=== PATIENT | female | born 1955 | race Caucasian/White ===

== ENCOUNTER → 2020-08-04 | Outpatient (CLI) | payer MEDICARE, OTHER ==
[~2020-08-04] MED LIST: ALBUTEROL2.5 MG/3 M INH; AMLODIPINE BESY10 MG PO; ANORO ELLIPTA1 EACH INH; ARAVA20 MG PO; ASPIRIN EC81 MG PO; CHANTIX1 MG PO; CITALOPRAM HBR10 MG PO; CLOPIDOGREL75 MG PO; CRESTOR 10 MG T10 MG PO; CRESTOR10 MG PO; ECOTRIN81 MG PO; GABAPENTIN600 MG PO; ISOSORBIDE MONO30 MG PO; KEFLEX CAP 500500 MG PO; LASIX40 MG PO; LEVOTHYROXINE75 MCG PO; LOPRESSOR 50 MG50 MG PO; NEURONTIN600 MG PO; NITROSTAT0.4 MG SL; NORVASC10 MG PO; NOVOLOG 10100 UNITS/ INJ; NOVOLOG100 UNIT/1 SC; OMEPRAZOLE20 M1 PO; OMEPRAZOLE20 MG PO; OXYCODONE HCL15 MG PO; OXYCONTIN30 MG PO; PERCOCET 5-3251 EACH PO; PLAVIX 75 MG TA75 MG PO; PROTONIX40 MG PO; QUINAPRIL-HCTZ1 EAC2 PO; SOMA350 MG PO; SYNTHROID75 MCG PO; TOPROL XL50 MG PO; TRUXIMA10 MG/1 ML IV; VENTOLIN HFA 66.7 GM INH; VITAMIN D PO; VITAMIN D2000 UNI1 PO
== END ==
LOC: KOH-I 09:00
DX: Z12.2 Encounter for screening for malignant neoplasm of respiratory organs (principal); F17.210 Nicotine dependence, cigarettes, uncomplicated; R91.1 Solitary pulmonary nodule
CPT/HCPCS: G0297

== ENCOUNTER → 2020-11-30 | Outpatient (CLI) | payer MEDICARE, OTHER | LOC: ECHO 11:00 → NM 13:00 | DX: I25.10 Atherosclerotic heart disease of native coronary artery without angina pectoris (principal); I10 Essential (primary) hypertension; Z98.61 Coronary angioplasty status | CPT/HCPCS: ECHO; 78452; 93017; 93306; A9502; J2785 ==

== ENCOUNTER → 2020-12-23 | Outpatient (CLI) | payer MEDICARE, OTHER ==
[2020-12-23 15:43] LABS: HEMOGLOBIN 12.1 gm/dl (12.3-15.3); RED BLOOD COUNT 4.38 M/UL (4.00-5.10); WHITE BLOOD COUNT 14.6 K/UL (4.5-11.0)
[2020-12-23 16:20] LABS: BUN/CREATININE RATIO 23 (0-10)
== END ==
LOC: LAB 15:04
PROVIDERS: Internal Medicine Interventional Cardiology
DX: I25.10 Atherosclerotic heart disease of native coronary artery without angina pectoris (principal); R07.9 Chest pain, unspecified; E78.00 Pure hypercholesterolemia, unspecified; R00.2 Palpitations; I10 Essential (primary) hypertension; R06.02 Shortness of breath
CPT/HCPCS: 80048; 85025; 85610; 85730; 93005

== ENCOUNTER 2021-01-10 12:05 | Outpatient (CLI) | payer MEDICARE, OTHER ==
[~2021-01-10] VITALS: Ht 165.1 cm; Wt 85.3 kg
[~2021-01-10 12:05] MED LIST changes: -ALBUTEROL2.5 MG/3 M INH; -AMLODIPINE BESY10 MG PO; -ANORO ELLIPTA1 EACH INH; -CITALOPRAM HBR10 MG PO; -CLOPIDOGREL75 MG PO; -CRESTOR 10 MG T10 MG PO; -ECOTRIN81 MG PO; -LASIX40 MG PO; -LEVOTHYROXINE75 MCG PO; -NEURONTIN600 MG PO; -NITROSTAT0.4 MG SL; -NOVOLOG100 UNIT/1 SC; -OMEPRAZOLE20 M1 PO; -OXYCODONE HCL15 MG PO; -PROTONIX40 MG PO; -TOPROL XL50 MG PO; -TRUXIMA10 MG/1 ML IV; -VITAMIN D PO
[2021-01-10 12:45] LABS: RED BLOOD COUNT 4.4 M/UL (4.00-5.10); WHITE BLOOD COUNT 15.2 K/UL (4.5-11.0)
[2021-01-10 12:56] LABS: BUN/CREATININE RATIO 23 (0-10)
[2021-01-10] MEDS ORDERED: ALBUTEROL2.5 MG/3 M INH (13:02)
[2021-01-10] MEDS ORDERED: LEVOTHYROXINE75 MCG PO (13:03)
[2021-01-10] MEDS ORDERED: CRESTOR 10 MG T10 MG PO (13:03)
[2021-01-10] MEDS ORDERED: ECOTRIN81 MG PO (13:04)
[2021-01-10] MEDS ORDERED: CLOPIDOGREL75 MG PO (13:05)
[2021-01-10] MEDS ORDERED: AMLODIPINE BESY10 MG PO (13:05)
[2021-01-10] MEDS ORDERED: VITAMIN D PO (13:08)
[2021-01-10] MEDS ORDERED: QUINAPRIL-HCTZ1 EAC2 PO (13:09)
[2021-01-10] MEDS ORDERED: OMEPRAZOLE20 M1 PO (13:10)
[2021-01-10] MEDS ORDERED: NEURONTIN600 MG PO (13:11)
[2021-01-10] MEDS ORDERED: OXYCODONE HCL15 MG PO (13:12)
[2021-01-10] MEDS ORDERED: NITROSTAT0.4 MG SL (13:13)
[2021-01-10] MEDS ORDERED: ANORO ELLIPTA1 EACH INH (13:16)
[2021-01-10] MEDS ORDERED: TRUXIMA10 MG/1 ML IV (13:16)
[2021-01-10] MEDS ORDERED: LASIX40 MG PO (13:17)
[2021-01-10] MEDS ORDERED: CITALOPRAM HBR10 MG PO (13:18)
--- NOTE | 2021-01-10 20:00 | NUR ---
SHEATH PULLED AT APPROXIMATELY 1900, PRESSURE HELD FOR 20 MINUTES, DRESSING APPLIED. PATIENT TOLERATED PROCEDURE WELL, BEDREST UP AT 0130. PATIENT HAS BEEN MEDICATED FOR PAIN, CPAP APPLIED TO KEEP O2 SATS ABOVE 92
[2021-01-11 00:07] LABS: HEMOGLOBIN 11.2 gm/dl (12.3-15.3); RED BLOOD COUNT 4.11 M/UL (4.00-5.10); WHITE BLOOD COUNT 11.9 K/UL (4.5-11.0)
[2021-01-11 00:17] LABS: BUN/CREATININE RATIO 23 (0-10)
--- NOTE | 2021-01-11 01:47 | NUR ---
PATIENT BEDREST OVER AT 0100; PATIENT SAT UP SLOWLY TO SIDE OF BED, NO SIGNS OR SYMPTOMS OF BLEEDING NOTED. CATH SITE TO RT GROIN SOFT, SLIGHT BRUISING NOTED TO THE SITE. DRESSING CDL, TEGADERM IN PLACE. PT DENIES PAIN. PT UP TO BATHROOM WITH NO PROBLEMS, NO S/S DISTRESS. PT INSTRUCTED TO CALL IMMEDIATELY IF AREA FEELS HARD OR PAINFUL OR IF PT FEELS A 'POP'. PT VERBALLY AGREED. CALL [facility] IS WITHIN REACH.
[2021-01-11 04:31] LABS: HEMOGLOBIN 10.8 gm/dl (12.3-15.3); WHITE BLOOD COUNT 11.5 K/UL (4.5-11.0)
[2021-01-11 05:06] LABS: BUN/CREATININE RATIO 20 (0-10)
[2021-01-11] MEDS ORDERED: PROTONIX40 MG PO (16:47)
[2021-01-11] MEDS ORDERED: NOVOLOG100 UNIT/1 SC (17:05)
[2021-01-11] MEDS ORDERED: TOPROL XL50 MG PO (17:05)
== END 2021-01-11 17:32 | disposition home or self-care (01) ==
LOC: CATH 12:05 → PROG CARE 15:50 → CATH 01-11 17:32
PROVIDERS: Internal Medicine Interventional Cardiology
DX: I25.119 Atherosclerotic heart disease of native coronary artery with unspecified angina pectoris (principal); E11.9 Type 2 diabetes mellitus without complications; E78.5 Hyperlipidemia, unspecified; J44.9 Chronic obstructive pulmonary disease, unspecified; J96.11 Chronic respiratory failure with hypoxia; I65.29 Occlusion and stenosis of unspecified carotid artery; K21.9 Gastro-esophageal reflux disease without esophagitis; I11.9 Hypertensive heart disease without heart failure; E03.9 Hypothyroidism, unspecified; M19.90 Unspecified osteoarthritis, unspecified site; M05.9 Rheumatoid arthritis with rheumatoid factor, unspecified; I25.2 Old myocardial infarction; I27.21 Secondary pulmonary arterial hypertension; F17.210 Nicotine dependence, cigarettes, uncomplicated; Z95.5 Presence of coronary angioplasty implant and graft; Z99.81 Dependence on supplemental oxygen; Z88.8 Allergy status to other drugs, medicaments and biological substances; Z79.82 Long term (current) use of aspirin; Z79.4 Long term (current) use of insulin; Z79.02 Long term (current) use of antithrombotics/antiplatelets; Z79.891 Long term (current) use of opiate analgesic; Z79.899 Other long term (current) drug therapy
CPT/HCPCS: 36415; 36600; 80048; 82803; 82962; 85025; 85027; 85347; 85610; 85730; 93005; 94640; 94660; 94664; 94760; 97162; 99152; 99153; C1725; C1769; C1874; C1887; C9600; J0153; J0461; J1170; J1644; J2250; J3010; J3246; J7030; J7040; Q9963; Q9967

== ENCOUNTER → 2021-02-03 | Outpatient (CLI) | payer MEDICARE, OTHER ==
[~2021-02-03] MED LIST changes: +ALBUTEROL2.5 MG/3 M INH; +AMLODIPINE BESY10 MG PO; +ANORO ELLIPTA1 EACH INH; +CITALOPRAM HBR10 MG PO; +CLOPIDOGREL75 MG PO; +CRESTOR 10 MG T10 MG PO; +ECOTRIN81 MG PO; +LASIX40 MG PO; +LEVOTHYROXINE75 MCG PO; +NEURONTIN600 MG PO; +NITROSTAT0.4 MG SL; +NOVOLOG100 UNIT/1 SC; +OMEPRAZOLE20 M1 PO; +OXYCODONE HCL15 MG PO; +PROTONIX40 MG PO; +TOPROL XL50 MG PO; +TRUXIMA10 MG/1 ML IV; +VITAMIN D PO
== END ==
LOC: KOH-I 10:30
DX: R91.8 Other nonspecific abnormal finding of lung field (principal); R91.1 Solitary pulmonary nodule; R59.0 Localized enlarged lymph nodes; Z98.890 Other specified postprocedural states
CPT/HCPCS: 71250

== ENCOUNTER → 2021-02-09 | Outpatient (CLI) | payer MEDICARE, OTHER | LOC: RAD 16:36 | DX: M54.5 Low back pain (principal); M47.816 Spondylosis without myelopathy or radiculopathy, lumbar region | CPT/HCPCS: 72100 ==

== ENCOUNTER → 2021-05-10 | Outpatient (CLI) | payer MEDICARE, OTHER | LOC: KOH-I 14:30 | DX: I73.9 Peripheral vascular disease, unspecified (principal) | CPT/HCPCS: 93925; 93930 ==

== ENCOUNTER → 2021-06-28 | Outpatient (CLI) | payer MEDICARE, OTHER ==
[~2021-06-28] MED LIST changes: +BUMETANIDE1 MG PO; +ISORDIL TAB 3030 MG PO; +PEPCID40 MG PO
== END ==
LOC: EXRD 10:21
DX: R10.10 Upper abdominal pain, unspecified (principal); R11.0 Nausea; R21 Rash and other nonspecific skin eruption
CPT/HCPCS: 76705

== ENCOUNTER → 2021-06-29 | Day surgery (SDC) | payer MEDICARE, OTHER | END | disposition home or self-care (01) | LOC: OR 06:52 | DX: K31.9 Disease of stomach and duodenum, unspecified (principal); K25.9 Gastric ulcer, unspecified as acute or chronic, without hemorrhage or perforation; K31.89 Other diseases of stomach and duodenum; K29.70 Gastritis, unspecified, without bleeding; J96.11 Chronic respiratory failure with hypoxia; K21.9 Gastro-esophageal reflux disease without esophagitis; E66.9 Obesity, unspecified; I10 Essential (primary) hypertension; E11.9 Type 2 diabetes mellitus without complications; E03.9 Hypothyroidism, unspecified; J44.9 Chronic obstructive pulmonary disease, unspecified; E78.00 Pure hypercholesterolemia, unspecified; Z88.8 Allergy status to other drugs, medicaments and biological substances; Z72.0 Tobacco use; Z79.02 Long term (current) use of antithrombotics/antiplatelets; Z79.82 Long term (current) use of aspirin; Z20.822 Contact with and (suspected) exposure to COVID-19 | CPT/HCPCS: 82962; J2250; J2704; J7040 ==

== ENCOUNTER → 2021-07-08 | Outpatient (CLI) | payer MEDICARE, OTHER | LOC: CT 13:32 | DX: R10.10 Upper abdominal pain, unspecified (principal); D35.02 Benign neoplasm of left adrenal gland | CPT/HCPCS: 36415; 74170; 82565; Q9967 ==

== ENCOUNTER 2021-07-29 14:02 | Emergency (ER) | payer MEDICARE, OTHER ==
[~2021-07-29] VITALS: Ht 165.1 cm; Wt 80.7 kg
[2021-07-29 15:40] LABS: HEMOGLOBIN 13.3 gm/dl (12.3-15.3); RED BLOOD COUNT 4.88 M/UL (4.00-5.10); WHITE BLOOD COUNT 13.7 K/UL (4.5-11.0)
[2021-07-29 16:07] LABS: BUN/CREATININE RATIO 17 (0-10)
[2021-07-29] MEDS ORDERED: LASIX40 MG PO (17:57)
[2021-07-29] MEDS ORDERED: K-TAB ER20 MEQ PO (17:57)
== END 2021-07-29 18:30 | disposition home or self-care (01) ==
LOC: ER1 14:02
PROVIDERS: Physician Assistant
DX: U07.1 COVID-19 (principal); Z23 Encounter for immunization; I11.0 Hypertensive heart disease with heart failure; I50.9 Heart failure, unspecified; E11.9 Type 2 diabetes mellitus without complications; F17.200 Nicotine dependence, unspecified, uncomplicated; J44.9 Chronic obstructive pulmonary disease, unspecified; Z95.1 Presence of aortocoronary bypass graft
CPT/HCPCS: 36600; 71045; 80053; 82550; 82553; 82803; 83880; 84484; 85025; 93005; 94640; 94664; 96374; 96375; 99284; J1940; J2930; M0245; U0002

== ENCOUNTER → 2021-12-30 | Outpatient (CLI) | payer MEDICARE, OTHER ==
[~2021-12-30] MED LIST changes: +K-TAB ER20 MEQ PO
== END ==
LOC: CT 08:15
DX: N28.1 Cyst of kidney, acquired (principal); R10.9 Unspecified abdominal pain; N20.0 Calculus of kidney; D35.02 Benign neoplasm of left adrenal gland
CPT/HCPCS: 36415; 71046; 74170; 82565; 84520; Q9967

== ENCOUNTER → 2022-02-23 | Outpatient (CLI) | payer MEDICARE, OTHER | LOC: EMI 15:48 | DX: M51.27 Other intervertebral disc displacement, lumbosacral region (principal); M48.07 Spinal stenosis, lumbosacral region | CPT/HCPCS: 72148 ==